=== PATIENT | female | born 1995 | race African-American/Black ===

== ENCOUNTER 2021-03-20 02:56 | Emergency (ER) | payer BC ==
[~2021-03-20] VITALS: Ht 162.6 cm; Wt 70.9 kg
[2021-03-20 03:00] VITALS: BP 121/78
[2021-03-20] MEDS: LIDOCAINE 1%/EPI 1:100,000 20 ML VIAL. INJ ONE (03:15)
--- NOTE | 2021-03-20 03:49 | PHYS DOC ---
Past Medical History Past Surgical History: Smoking Status: Current Every Day Smoker Alcohol Use: Occasionally General Adult EDM: Chief Complaint: LACERATION/AVULSION HPI: HPI: Patient is a 25 year old female who presents with right leg laceration. Patient is in the process of moving, and she tripped on boxes and fell onto a glass decoration. She sustained a 4 cm linear laceration to the right gardiner. Bleeding was controlled with some bandages. Tetanus last updated 2 years ago. Review of Systems: Review of Systems: Constitutional: Denies fever or chills. [] HENT: Denies nasal congestion or sore throat. [] Respiratory: Denies cough or shortness of breath. [] Cardiovascular: Denies chest pain or edema. [] Integument: Reports laceration Heart Score: C/O Chest Pain: No Current Medications: Current Medications Medications (Trade) Dose Ordered Sig/Edie Start Time Stop Time Status Last Admin Dose Admin Lidocaine/ Epinephrine (LIDOCAINE 1%-EPI 1:100,000 Multi-Dose) 20 ml 1X ONCE 03/20/21 03:30 03/20/21 03:31 DC 03/20/21 03:15 20 ML Allergies: Allergies: Allergies Coded Allergies Type Severity Reaction Last Updated Verified No Known Drug Allergies 03/20/21 No Physical Exam: PE: Constitutional: Well developed, well nourished, no acute distress, non-toxic appearance. [] HENT: Normocephalic, atraumatic Cardiovascular: Regular rate and rhythm Lungs & Thorax: Normal work of breathing Skin: 4 cm linear superficial laceration transversely oriented across the anterior gardiner. Very superficial, no fatty tissue, vascular injury, or bony injury noted. Extremities: DP 2+ right. Normal range of motion of the ankle and knee. The laceration is not overlying any joint spaces. Neurologic: Alert and oriented X 3, normal motor function, normal sensory function, no focal deficits noted. [] Psychologic: Affect normal, judgement normal, mood normal. [] Current Patient Data: Vital Signs: Vital Signs Date Time Temp Pulse Resp B/P (MAP) Pulse Ox O2 Delivery O2 Flow Rate FiO2 03/20/21 03:00 98.6 106 16 121/78 (92) 99 Room Air 98.6 EKG: EKG: [] Radiology/Procedures: Radiology/Procedures: Indication: Laceration Procedure: The patient was placed in the appropriate position and anesthesia around the 4 cm laceration was injected with 1% lidocaine with epinephrine. The area was then copiously irrigated with sterile saline with pressure syringe.. The laceration was closed with number nine 4-0 silk sutures in a simple interrupted fashion. Total repaired wound length: 4. Other Items: None The patient tolerated the procedure well. Complications: None.[] Course & Med Decision Making: Course & Med Decision Making Pertinent Labs and Imaging studies reviewed. (See chart for details) Patient is a 25-year-old female presents with superficial laceration to the anterior right gardiner. Closed as above. Tdap up-to-date. Wound care instructions provided Dragon Disclaimer: DragFuelzee Disclaimer: This electronic medical record was generated, in whole or in part, using a voice recognition dictation system. Departure Departure Impression: Primary Impression: Laceration Disposition: 01 HOME / SELF CARE / HOMELESS Condition: STABLE Patient Instructions: Laceration Care, Adult Additional Instructions: We repaired your laceration with 9 stitches. These will need to come out in ~7 days. Please schedule appointment with a primary care doctor, or visit in ED or urgent care to have these removed. Keep the area clean and dry. Keep it dressed. Use an ointment such as Neosporin or bacitracin on it. If you have increasing swelling, pain, redness, or warmth these are all signs of potential infection. If these occur please see your doctor. For pain tylenol and ibuprofen are best used on a schedule. Please alternate between the two. -Tylenol 1000 mg every 6 hours (do not exceed 4000 mg in one day) -Ibuprofen 400 mg every 6 hours. Take with food. Do not take for more than 1 week. Since you do not have a PCP, please call the number for the [facility] at [phone]. BRIAN WOLFF MD Mar 20, 2021 03:49
== END 2021-03-20 03:51 | disposition home or self-care (01) ==
LOC: ER 02:56
DX: S81.811A Laceration without foreign body, right lower leg, initial encounter (principal); F17.200 Nicotine dependence, unspecified, uncomplicated; W01.110A Fall on same level from slipping, tripping and stumbling with subsequent striking against sharp glass, initial encounter; Y93.89 Activity, other specified; Y92.89 Other specified places as the place of occurrence of the external cause; Y99.8 Other external cause status
CPT/HCPCS: 12002; 99282; J3490